=== PATIENT | male | born 1965 | race Caucasian/White ===

== ENCOUNTER 2024-04-25 08:16 | Inpatient (IN) | payer MEDICAID, OTHER ==
[~2024-04-25] VITALS: Ht 175.3 cm; Wt 116.7 kg
[~2024-04-25 08:16] MED LIST: CELE20TA
[2024-04-25] MEDS: ONDANSETRON 4MG 2ML VIAL IV ONE (09:56)
[2024-04-25 10:08] LABS: BASO # 0.1 10^3/uL (0.0-0.2); BASO % 0.4 % (0.0-1.0); HEMATOCRIT 48.5 % (42.0-52.0); HEMOGLOBIN 16.1 g/dl (13.5-17.5); LYMPH # 0.9 10^3/uL (1.5-5.0); LYMPH % 7.2 % (24.0-44.0); MEAN CORPUSCULAR HEMOGLOBIN 29.8 pg (27.0-33.0); MEAN CORPUSCULAR HGB CONC 33.2 g/dl (32.0-36.5); MEAN CORPUSCULAR VOLUME 89.6 fl (80.0-96.0); MONO # 1.6 10^3/uL (0.0-0.8); MONO % 12.4 % (2.0-8.0); NEUTROPHILS % 79.7 % (36.0-66.0); PLATELET COUNT, AUTOMATED 263 10^3/uL (150-450); RED BLOOD COUNT 5.41 10^6/uL (4.30-6.10); WHITE BLOOD COUNT 12.6 10^3/uL (4.0-10.0)
[2024-04-25 10:27] LABS: CK-MB VALUE MASS < 1.0 NG/ML (<3.6)
[2024-04-25 10:28] LABS: LIPASE 25 U/L (12-53)
[2024-04-25 10:28] LABS: APPEARANCE, URINE CLEAR (CLEAR); BACTERIA, URINE AUTO NEGATIVE (NEGATIVE); BILIRUBIN, URINE AUTO NEGATIVE (NEGATIVE); BLOOD, URINE BLOOD NEGATIVE (NEGATIVE); COLOR, URINE AMBER (YELLOW); GLUCOSE, URINE (UA) AUTO NEGATIVE (NEGATIVE); KETONE, URINE AUTO 1+ mg/dL (NEGATIVE); LEUKOCYTE ESTERASE, URINE AUTO NEGATIVE (NEGATIVE); MUCUS, URINE MODERATE (NEGATIVE); NITRITE, URINE AUTO NEGATIVE (NEGATIVE); PROTEIN, URINE AUTO 1+ mg/dL (NEGATIVE); RBC, URINE AUTO 0 /HPF (0-3); SPECIFIC GRAVITY URINE AUTO 1.026 (1.002-1.035); SQUAMOUS EPITHELIAL CELL UR AU 0 /HPF (0-6); WBC, URINE AUTO 1 /HPF (0-3)
[2024-04-25 10:30] LABS: ALBUMIN 3.5 G/DL (3.2-5.2); ALKALINE PHOSPHATASE 71 U/L (40-129); ALT/SGPT 49 U/L (7.0-40); AST/SGOT 23 U/L (<34); BILIRUBIN,DIRECT 0.7 MG/DL (<0.4); BILIRUBIN,TOTAL 1.7 MG/DL (0.3-1.2); BLOOD UREA NITROGEN 13 MG/DL (9-23); CALCIUM LEVEL 9.7 MG/DL (8.5-10.1); CARBON DIOXIDE LEVEL 26 MMOL/L (20-31); CHLORIDE LEVEL 104 MMOL/L (98-107); CREATININE FOR GFR 0.86 MG/DL (0.70-1.30); GLOMERULAR FILTRATION RATE > 60.0 (>56); GLUCOSE, FASTING 131 MG/DL (60-100); POTASSIUM SERUM 4.5 MMOL/L (3.5-5.1); SODIUM LEVEL 139 MMOL/L (136-145); TOTAL PROTEIN 6.3 G/DL (5.7-8.2)
[2024-04-25 10:47] LABS: CPK CREATINE PHOSPHOKINASE 68 U/L (46-171); MB/CK RELATIVE INDEX 1.47 (< OR =4)
[2024-04-25] MEDS: LORazepam 1 MG TAB PO ONE (11:34)
[2024-04-25] MEDS: ASPIRIN 81MG CHEW TABLET PO ONE (11:34)
[2024-04-25] MEDS: METOPROLOL TART 50 MG TAB PO ONE (11:35)
[2024-04-25 11:56] LABS: INR 1.03; PARTIAL THROMBOPLASTIN TIME 25.9 SECONDS (24.8-34.2); PROTHROMBIN TIME 13.8 SECONDS (12.5-14.5)
[2024-04-25 12:09] LABS: CK-MB VALUE MASS < 1.0 NG/ML (<3.6)
[2024-04-25 12:13] LABS: FREE T4 1.33 NG/DL (0.89-1.76); THYROID STIMULATING HORMONE 0.863 uIU/ML (0.55-4.78)
[2024-04-25 12:17] LABS: CPK CREATINE PHOSPHOKINASE 58 U/L (46-171); MB/CK RELATIVE INDEX 1.72 (< OR =4)
[2024-04-25] MEDS ORDERED: AMIODARONE 150MG/3ML VIAL IVP STA (12:30)
[2024-04-25] MEDS: AMIODARONE HCL 150 MG in IV 1 EA IV STA (12:48)
[2024-04-25] MEDS: FUROSEMIDE 20MG/2ML VIAL IV ONE (14:29)
[2024-04-25] MEDS ORDERED: HOME MED LIST COMPLETE! XX SCH (14:30)
[2024-04-25] MEDS: FUROSEMIDE injection 100 MG, VIAL 2 BAG 13MM ADAPTER 1 EACH in D5W 100 ML IV SCH (17:06)
[2024-04-25 18:41] LABS: PROCALCITONIN 0.11 ng/ml
[2024-04-25] MEDS: ATORVASTATIN 20 MG TAB PO SCH (21:52)
[2024-04-25] MEDS: APIXABAN 5 MG TAB (ELIQUIS) PO SCH (21:53)
[2024-04-25] MEDS: METOPROLOL TART 25 MG TABLET PO SCH (21:53)
[2024-04-25] MEDS ORDERED: LORazepam 2 MG TAB PO PRN (21:55)
[2024-04-25 22:39] LABS: BLOOD UREA NITROGEN 15 MG/DL (9-23); CALCIUM LEVEL 8.8 MG/DL (8.5-10.1); CARBON DIOXIDE LEVEL 28 MMOL/L (20-31); CHLORIDE LEVEL 103 MMOL/L (98-107); CREATININE FOR GFR 0.98 MG/DL (0.70-1.30); GLOMERULAR FILTRATION RATE > 60.0 (>56); GLUCOSE, FASTING 113 MG/DL (60-100); POTASSIUM SERUM 4.1 MMOL/L (3.5-5.1); SODIUM LEVEL 137 MMOL/L (136-145)
[2024-04-25] MEDS: THIAMINE 100 MG TAB PO SCH (23:02)
[2024-04-26 03:39] LABS: ALBUMIN 3.1 G/DL (3.2-5.2); ALKALINE PHOSPHATASE 63 U/L (40-129); ALT/SGPT 39 U/L (7.0-40); AST/SGOT 16 U/L (<34); BILIRUBIN,DIRECT 0.7 MG/DL (<0.4); BILIRUBIN,TOTAL 1.6 MG/DL (0.3-1.2); TOTAL PROTEIN 5.9 G/DL (5.7-8.2)
[2024-04-26 07:24] LABS: HEMATOCRIT 46.9 % (42.0-52.0); HEMOGLOBIN 15.6 g/dl (13.5-17.5); MEAN CORPUSCULAR HEMOGLOBIN 29.9 pg (27.0-33.0); MEAN CORPUSCULAR HGB CONC 33.3 g/dl (32.0-36.5); PLATELET COUNT, AUTOMATED 256 10^3/uL (150-450); RED BLOOD COUNT 5.21 10^6/uL (4.30-6.10); WHITE BLOOD COUNT 11.6 10^3/uL (4.0-10.0)
[2024-04-26] MEDS: MULTIVITAMINS/MINERALS THERAP 1 TAB PO SCH (07:53)
[2024-04-26] MEDS: FOLIC ACID 1MG TAB PO SCH (07:53)
[2024-04-26 07:59] LABS: BLOOD UREA NITROGEN 16 MG/DL (9-23); CALCIUM LEVEL 9.1 MG/DL (8.5-10.1); CARBON DIOXIDE LEVEL 27 MMOL/L (20-31); CHLORIDE LEVEL 101 MMOL/L (98-107); CHOLESTEROL LEVEL 162 MG/DL (<200); CHOLESTEROL RISK RATIO 3.26 (<5); CREATININE FOR GFR 0.93 MG/DL (0.70-1.30); GLOMERULAR FILTRATION RATE > 60.0 (>56); GLUCOSE, FASTING 96 MG/DL (60-100); HDL CHOLESTEROL 49.6 MG/DL (>40); LDL CHOLESTEROL 97.4 MG/DL (<100); NON-HDL-C 112.4 MG/DL; SODIUM LEVEL 138 MMOL/L (136-145); TRIGLYCERIDES LEVEL 75 MG/DL (<150)
[2024-04-26] MEDS: METOPROLOL TART 12.5 MG PER 1/2 TAB PO SCH (08:01)
[2024-04-26] MEDS: MAGNESIUM OXIDE 400MG TAB (MAG-OX) PO SCH (08:01)
[2024-04-26 08:07] LABS: HEMOGLOBIN A1c 5.4 % (4.0-6.0)
[2024-04-26 08:14] LABS: MAGNESIUM LEVEL 2.1 MG/DL (1.8-2.4)
[2024-04-26 16:00] VITALS: BP 138/102; TEMP 98.2; O2SAT 100
[2024-04-26 20:36] VITALS: BP 130/94; TEMP 98.3; O2SAT 99
[2024-04-27] VITALS (7 sets, daily range): BP systolic 110–129; BP diastolic 70–82; TEMP 97.7–98.1; O2SAT 94–97
[2024-04-27 07:06] LABS: HEMATOCRIT 49.6 % (42.0-52.0); HEMOGLOBIN 16.9 g/dl (13.5-17.5); MEAN CORPUSCULAR HEMOGLOBIN 30.1 pg (27.0-33.0); MEAN CORPUSCULAR HGB CONC 34.1 g/dl (32.0-36.5); MEAN CORPUSCULAR VOLUME 88.4 fl (80.0-96.0); PLATELET COUNT, AUTOMATED 273 10^3/uL (150-450); RED BLOOD COUNT 5.61 10^6/uL (4.30-6.10); WHITE BLOOD COUNT 10.6 10^3/uL (4.0-10.0)
[2024-04-27 07:31] LABS: BLOOD UREA NITROGEN 15 MG/DL (9-23); CALCIUM LEVEL 9.1 MG/DL (8.5-10.1); CARBON DIOXIDE LEVEL 27 MMOL/L (20-31); CHLORIDE LEVEL 102 MMOL/L (98-107); CREATININE FOR GFR 0.94 MG/DL (0.70-1.30); GLOMERULAR FILTRATION RATE > 60.0 (>56); GLUCOSE, FASTING 102 MG/DL (60-100); MAGNESIUM LEVEL 2.2 MG/DL (1.8-2.4); POTASSIUM SERUM 4.1 MMOL/L (3.5-5.1); SODIUM LEVEL 140 MMOL/L (136-145)
[2024-04-27] MEDS ORDERED: LORazepam 2 MG TAB PO PRN (13:25)
[2024-04-27] MEDS: FUROSEMIDE 40MG/4ML VIAL IV SCH (16:07)
[2024-04-27] MEDS: METOPROLOL TART 25 MG TABLET PO SCH (16:07)
[2024-04-27] MEDS: ONDANSETRON 4MG 2ML VIAL IV PRN (20:07)
[2024-04-28 04:17] VITALS: BP 120/80; TEMP 98.7; O2SAT 93
[2024-04-28 05:04] VITALS: BP 119/79
[2024-04-28 05:46] LABS: HEMATOCRIT 50.7 % (42.0-52.0); HEMOGLOBIN 17.2 g/dl (13.5-17.5); MEAN CORPUSCULAR HGB CONC 33.9 g/dl (32.0-36.5); MEAN CORPUSCULAR VOLUME 88.3 fl (80.0-96.0); PLATELET COUNT, AUTOMATED 309 10^3/uL (150-450); RED BLOOD COUNT 5.74 10^6/uL (4.30-6.10); WHITE BLOOD COUNT 9.5 10^3/uL (4.0-10.0)
[2024-04-28 06:02] LABS: BLOOD UREA NITROGEN 19 MG/DL (9-23); CALCIUM LEVEL 9.3 MG/DL (8.5-10.1); CARBON DIOXIDE LEVEL 27 MMOL/L (20-31); CHLORIDE LEVEL 104 MMOL/L (98-107); CREATININE FOR GFR 0.91 MG/DL (0.70-1.30); GLOMERULAR FILTRATION RATE > 60.0 (>56); GLUCOSE, FASTING 105 MG/DL (60-100); MAGNESIUM LEVEL 2.3 MG/DL (1.8-2.4); POTASSIUM SERUM 4.2 MMOL/L (3.5-5.1); SODIUM LEVEL 139 MMOL/L (136-145)
[2024-04-28 07:35] VITALS: BP 107/80; TEMP 98.5; O2SAT 96
[2024-04-28 12:05] VITALS: BP 122/81; TEMP 98.2; O2SAT 95
[2024-04-28 12:14] VITALS: BP 122/81
[2024-04-28] MEDS ORDERED: ELIQ5TAB PO (12:37)
[2024-04-28] MEDS ORDERED: POTA1TAB21 PO (12:37)
[2024-04-28] MEDS ORDERED: MAGN400T2 PO (12:37)
[2024-04-28] MEDS ORDERED: METO50TA7 PO (12:37)
[2024-04-28] MEDS ORDERED: TORS20TA2 PO (12:37)
[2024-04-28] MEDS ORDERED: ATOR1TAB21 PO (12:37)
[2024-04-28 16:10] VITALS: BP 111/73; TEMP 98; O2SAT 95
== END 2024-04-28 18:59 | disposition home or self-care (01) | DRG 194 ==
LOC: M ED 08:16 → M ED INP 16:26 → M PCU 04-26 16:57
PROVIDERS: ADMIT Student in an Organized Health Care Education/Training Program; ATTEND Internal Medicine Nephrology
PROC: B246ZZZ Ultrasonography of Right and Left Heart (ICD-10-PCS; principal; 2024-04-25)
DX: I50.21 Acute systolic (congestive) heart failure (principal); E83.42 Hypomagnesemia; I42.6 Alcoholic cardiomyopathy; F10.10 Alcohol abuse, uncomplicated; I48.91 Unspecified atrial fibrillation; K57.30 Diverticulosis of large intestine without perforation or abscess without bleeding; R73.9 Hyperglycemia, unspecified; R59.0 Localized enlarged lymph nodes; E66.9 Obesity, unspecified; Z87.891 Personal history of nicotine dependence; Z68.38 Body mass index [BMI] 38.0-38.9, adult

== ENCOUNTER → 2024-05-01 | Outpatient (REF) | payer OTHER ==
[~2024-05-01] MED LIST changes: +ATOR1TAB21 PO; +ELIQ5TAB PO; +MAGN400T2 PO; +METO50TA7 PO; +POTA1TAB21 PO; +TORS20TA2 PO
== END ==
LOC: M LAB REF 18:00
PROVIDERS: ATTEND Physician Assistant Medical
DX: B34.9 Viral infection, unspecified (principal)

== ENCOUNTER → 2024-05-17 | Outpatient (REF) | payer OTHER ==
[2024-05-17 19:19] LABS: BASO # 0.1 10^3/uL (0.0-0.2); BASO % 1.3 % (0.0-1.0); EOS # 0.2 10^3/uL (0.0-0.5); HEMATOCRIT 50.5 % (42.0-52.0); HEMOGLOBIN 16.7 g/dl (13.5-17.5); LYMPH # 2.4 10^3/uL (1.5-5.0); LYMPH % 25.6 % (24.0-44.0); MEAN CORPUSCULAR HEMOGLOBIN 28.8 pg (27.0-33.0); MEAN CORPUSCULAR HGB CONC 33.1 g/dl (32.0-36.5); MEAN CORPUSCULAR VOLUME 87.2 fl (80.0-96.0); MONO # 0.9 10^3/uL (0.0-0.8); MONO % 9.9 % (2.0-8.0); NEUTROPHILS # 5.7 10^3/uL (1.5-8.5); PLATELET COUNT, AUTOMATED 317 10^3/uL (150-450); RED BLOOD COUNT 5.79 10^6/uL (4.30-6.10); WHITE BLOOD COUNT 9.3 10^3/uL (4.0-10.0)
[2024-05-17 19:53] LABS: ALBUMIN 3.6 G/DL (3.2-5.2); ALKALINE PHOSPHATASE 95 U/L (40-129); ALT/SGPT 36 U/L (7.0-40); AST/SGOT 26 U/L (<34); BILIRUBIN,TOTAL 0.6 MG/DL (0.3-1.2); BLOOD UREA NITROGEN 22 MG/DL (9-23); CARBON DIOXIDE LEVEL 28 MMOL/L (20-31); CHLORIDE LEVEL 101 MMOL/L (98-107); CHOLESTEROL LEVEL 150 MG/DL (<200); CREATININE FOR GFR 1.03 MG/DL (0.70-1.30); GLOMERULAR FILTRATION RATE > 60.0 (>56); GLUCOSE, FASTING 87 MG/DL (60-100); HDL CHOLESTEROL 39.4 MG/DL (>40); LDL CHOLESTEROL 90.6 MG/DL (<100); MAGNESIUM LEVEL 2.3 MG/DL (1.8-2.4); NON-HDL-C 110.6 MG/DL; SODIUM LEVEL 140 MMOL/L (136-145); TOTAL PROTEIN 7.1 G/DL (5.7-8.2); TRIGLYCERIDES LEVEL 100 MG/DL (<150)
[2024-05-17 19:56] LABS: THYROID STIMULATING HORMONE 1.307 uIU/ML (0.55-4.78)
== END ==
LOC: M LAB REF 16:36
PROVIDERS: ATTEND Pediatrics
DX: E83.42 Hypomagnesemia (principal); I50.9 Heart failure, unspecified; F10.20 Alcohol dependence, uncomplicated; E66.2 Morbid (severe) obesity with alveolar hypoventilation; R59.0 Localized enlarged lymph nodes; Z68.41 Body mass index [BMI] 40.0-44.9, adult

== ENCOUNTER → 2024-07-12 | Outpatient (REF) | payer OTHER ==
[2024-07-12 19:14] LABS: ALBUMIN 3.6 G/DL (3.2-5.2); ALKALINE PHOSPHATASE 101 U/L (40-129); ALT/SGPT 24 U/L (7.0-40); AST/SGOT 17 U/L (<34); BILIRUBIN,TOTAL 0.6 MG/DL (0.3-1.2); BLOOD UREA NITROGEN 21 MG/DL (9-23); CALCIUM LEVEL 9.5 MG/DL (8.5-10.1); CARBON DIOXIDE LEVEL 27 MMOL/L (20-31); CHLORIDE LEVEL 105 MMOL/L (98-107); CHOLESTEROL LEVEL 131 MG/DL (<200); CHOLESTEROL RISK RATIO 3.23 (<5); GLOMERULAR FILTRATION RATE > 60.0 (>56); GLUCOSE, FASTING 102 MG/DL (60-100); HDL CHOLESTEROL 40.5 MG/DL (>40); LDL CHOLESTEROL 70.5 MG/DL (<100); NON-HDL-C 90.5 MG/DL; POTASSIUM SERUM 4.5 MMOL/L (3.5-5.1); SODIUM LEVEL 141 MMOL/L (136-145); TOTAL PROTEIN 6.9 G/DL (5.7-8.2); TRIGLYCERIDES LEVEL 100 MG/DL (<150)
== END ==
LOC: M LAB REF 17:56
PROVIDERS: ATTEND Pediatrics
DX: E78.5 Hyperlipidemia, unspecified (principal)

== ENCOUNTER → 2024-11-16 | Outpatient (REF) | payer OTHER ==
[2024-11-16 19:11] LABS: ALT/SGPT 22 U/L (7.0-40); AST/SGOT 22 U/L (<34); CALCIUM LEVEL 9.8 MG/DL (8.3-10.6); CARBON DIOXIDE LEVEL 26 MMOL/L (20-31); CHLORIDE LEVEL 106 MMOL/L (98-107); CREATININE FOR GFR 0.95 MG/DL (0.70-1.30); GLOMERULAR FILTRATION RATE > 90.0 (>49); MAGNESIUM LEVEL 2.4 MG/DL (1.8-2.4); POTASSIUM SERUM 4.6 MMOL/L (3.5-5.1); SODIUM LEVEL 144 MMOL/L (136-145)
[2024-11-16 19:12] LABS: BASO # 0.1 10^3/uL (0.0-0.2); BASO % 1.2 % (0.0-1.0); EOS # 0.1 10^3/uL (0.0-0.5); EOS % 1.2 % (0.0-3.0); LYMPH # 2.3 10^3/uL (1.5-5.0); LYMPH % 24.0 % (24.0-44.0); MONO # 0.8 10^3/uL (0.0-0.8); MONO % 8.0 % (2.0-8.0); NEUTROPHILS # 6.2 10^3/uL (1.5-8.5); NEUTROPHILS % 65.3 % (36.0-66.0); PLATELET COUNT, AUTOMATED 320 10^3/uL (150-450)
[2024-11-16 20:41] LABS: ESTIMATED AVERAGE GLUCOSE 120.0 MG/DL (60-110)
== END ==
LOC: M LAB REF 18:10
PROVIDERS: ATTEND Pediatrics
DX: F10.20 Alcohol dependence, uncomplicated (principal); R73.9 Hyperglycemia, unspecified; E83.42 Hypomagnesemia

== ENCOUNTER → 2024-12-07 | Outpatient (CLI) | payer OTHER ==
[~2024-12-07] MED LIST changes: +ISOVUE-370 76% 100 ML VIAL As Ordered ONE
== END ==
LOC: M RAD 14:48
PROVIDERS: ATTEND Pediatrics
DX: R59.0 Localized enlarged lymph nodes (principal)
CPT/HCPCS: 71260; Q9967

== ENCOUNTER → 2025-03-01 | Outpatient (REF) | payer OTHER ==
[~2025-03-01] MED LIST changes: -ISOVUE-370 76% 100 ML VIAL As Ordered ONE
[2025-03-01 18:13] LABS: ESTIMATED AVERAGE GLUCOSE 114.0 MG/DL (60-110)
== END ==
LOC: M LAB REF 16:17
PROVIDERS: ATTEND Pediatrics
DX: F41.9 Anxiety disorder, unspecified (principal); R73.03 Prediabetes